=== PATIENT | female | born 1985 | race Caucasian/White ===

== ENCOUNTER 2020-01-30 14:02 | Emergency (ER) | payer BC, SELFPAY ==
[2020-01-30 14:04] VITALS: BP 127/78; PULSE 92; RESP 16; TEMP 36.4; O2SAT 99
[2020-01-30 14:28] LABS: Basophils Absolute Auto 0.1 K/mm3 (0.0-0.1); Basophils Percent Auto 0.5 % (0.2-1.2); Eosinophils Absolute Auto 0.2 K/mm3 (0-0.3); Eosinophils Percent Auto 1.5 % (0-4.4); Hematocrit 42.6 % (37.0-47.0); Hemoglobin 14.6 g/dL (12.0-15.0); Immature Granulocyte Absolute 0.03 K/mm3 (0.00-0.031); Immature Granulocyte Percent A 0.3 % (0-0.5); Lymphocytes Absolute Auto 1.93 K/mm3 (0.9-3.2); Lymphocytes Percent Auto 18.4 % (18.3-44.2); Mean Corpuscular HGB Conc 34.3 g/dl (32-36); Mean Corpuscular Hemoglobin 31.8 pg (26-34); Mean Corpuscular Volume 92.8 fl (80-100); Mean Platelet Volume 9.3 fl (7.4-10.4); Monocytes Absolute Auto 0.6 K/mm3 (0.1-0.6); Monocytes Percent Auto 5.2 % (2.6-8.5); Neutrophils Absolute Auto 7.8 K/mm3 (1.3-6.7); Neutrophils Percent Auto 74.1 % (45.5-73.1); Platelet Count Result 363 k/mm3 (150-375); Red Blood Count 4.59 M/mm3 (4.2-5.4); Red Cell Distribution Width 12.7 % (11.5-14.5); White Blood Count 10.5 K/mm3 (4.5-10.0)
[2020-01-30 14:37] LABS: Prothrombin Time 12.6 Seconds (11.1-14.7)
[2020-01-30 14:38] LABS: Partial Thromboplastin Time 26.8 SECONDS (22.3-36.8)
[2020-01-30 14:44] LABS: Alanine Aminotransferase 20 U/L (4-35); Albumin Level 4.5 g/dL (3.5-5.1); Alkaline Phosphatase 75 U/L (38-126); Aspartate Amino Transferase 23 U/L (14-36); Bilirubin,Total 0.2 mg/dL (0.2-1.3); Blood Urea Nitrogen 16 mg/dL (7-17); Calcium 9.2 mg/dL (8.4-10.2); Carbon Dioxide 25 mmol/L (22-30); Chloride 106 mmol/L (98-107); Estimated CRCL calculation 78 ml/min; Estimated Glomerular Filt Rate 57; Glucose 98 mg/dL (65-105); Potassium 4.2 mmol/L (3.4-5.0); Sodium 139 mmol/L (137-145)
[2020-01-30 14:52] VITALS: BP 118/69; BP 133/79; BP 141/65; PULSE 78; PULSE 79; PULSE 82
[2020-01-30] MEDS: SODIUM CHLORIDE 0.9% IV 1,000 ML 999 ML IV CONT (15:02)
--- NOTE | 2020-01-30 15:36 | ED.GENADULT ---
HPI - General Adult General Chief complaint: GI Bleed <Michael Malin PA-C - Last Filed: 01/30/20 15:45> Stated complaint: rectal bleeding <Michael Malin PA-C - Last Filed: 01/30/20 15:45> Time Seen by Provider: 01/30/20 14:35 <Michael Malin PA-C - Last Filed: 01/30/20 15:45> Source: patient <Michael Malin PA-C - Last Filed: 01/30/20 15:45> Mode of arrival: ambulatory <Michael Malin PA-C - Last Filed: 01/30/20 15:45> Limitations: no limitations <Michael Malin PA-C - Last Filed: 01/30/20 15:45> History of Present Illness HPI narrative: Patient is a 34-year-old female who presents to emergency department for evaluation of rectal bleeding patient notes that she had a normal bowel movement this morning followed by red blood in the toilet and with wiping and has had 2 others since patient denies any straining. Patient denies similar occurrence in the past. Patient denies any pain. Patient presents with no other complaints denies recent illness or sick contacts. Patient has not taken anything for her symptoms <Michael Malin PA-C - Last Filed: 01/30/20 15:45> Related Data Allergies/adverse reactions: Allergies Allergy/AdvReac Type Severity Reaction Status Date / Time Cat Dander Allergy Unknown Cough Uncoded 01/30/20 14:07 <Michael Malin PA-C - Last Filed: 01/30/20 15:45> Review of Systems Review of Systems: All systems reviewed & are unremarkable except as noted in HPI and below <Michael Malin PA-C - Last Filed: 01/30/20 15:45> PMFSH Past Medical History Medical History: Medical History (Updated 01/30/20 @ 15:44 by Michael Malin PA-C) Obesity <Michael Malin PA-C - Last Filed: 01/30/20 15:45> Exam Narrative: Exam Narrative: GENERAL: Well-appearing, well-nourished, and in no acute distress. HEAD: Normocephalic, atraumatic. EYES: PERRLA and EOMI. ENT: Nares clear, no rhinorrhea or epistaxis. Mucous membranes moist. CHEST: Clear to auscultation. No respiratory distress. No wheezes rales or rhonchi HEART: Regular rate and rhythm. No murmur heard. Normal peripheral pulses. ABDOMEN: Soft, nontender, nondistended EXTREMITIES: Normal range of motion. No edema. SKIN: Warm, dry, no rash. NEURO: No focal deficits. Alert and oriented x3. PSYCH: Normal mood and affect. <Michael Malin PA-C - Last Filed: 01/30/20 15:45> Course Course Emergency Course: Patient resting comfortably in the room in no distress aware of case findings treatment plan and diagnosis will follow with primary care and gastroenterology and has been given reasons to return <Michael Malin PA-C - Last Filed: 01/30/20 15:45> Vital Signs Vital signs: Vital Signs Temperature 97.5 F L 01/30/20 14:04 Pulse Rate 92 01/30/20 14:04 Respiratory Rate 16 01/30/20 14:04 Blood Pressure 127/78 01/30/20 14:04 Pulse Oximetry 99 01/30/20 14:04 Temperature 97.5 F L 01/30/20 14:04 Pulse Rate 82 01/30/20 16:07 Respiratory Rate 17 01/30/20 16:07 Blood Pressure 112/75 01/30/20 16:07 Pulse Oximetry 98 01/30/20 16:07 <Michael Malin PA-C - Last Filed: 01/30/20 15:45> Vital Signs Temperature 97.5 F L 01/30/20 14:04 Pulse Rate 92 01/30/20 14:04 Respiratory Rate 16 01/30/20 14:04 Blood Pressure 127/78 01/30/20 14:04 Pulse Oximetry 99 01/30/20 14:04 Temperature 97.5 F L 01/30/20 14:04 Pulse Rate 82 01/30/20 16:07 Respiratory Rate 17 01/30/20 16:07 Blood Pressure 112/75 01/30/20 16:07 Pulse Oximetry 98 01/30/20 16:07 <Haylee Iglesias MD - Last Filed: 01/30/20 20:02> Medical Decision Making MDM Narrative Medical decision making narrative: Patient in the room hemodynamically stable hydrated in the emergency department will be discharged home with referrals for primary care and gastroenterology given strict reasons to return patient with nontender abdominal exam no high r
[2020-01-30 16:07] VITALS: BP 112/75; PULSE 82; RESP 17; O2SAT 98
== END 2020-01-30 16:07 | disposition home or self-care (01) ==
PROVIDERS: Emergency Provider Emergency Medicine
DX: K62.5 Hemorrhage of anus and rectum (principal); Z68.41 Body mass index [BMI] 40.0-44.9, adult; E66.9 Obesity, unspecified
CPT/HCPCS: 36415; 80053; 85025; 85610; 85730; 86850; 86900; 86901; 96360; 99283; J7030